=== PATIENT | female | born 1940 | race Caucasian/White ===

== ENCOUNTER 2020-06-28 11:31 | Observation (INO) | payer MEDICARE, SELFPAY ==
[2020-06-28] VITALS (7 sets, daily range): BP systolic 138–143; BP diastolic 71–92; PULSE 68–80; RESP 16; TEMP 36.2–36.8; O2SAT 93–98; BMI 26.4; BMI 26.5
--- NOTE | 2020-06-28 12:38 | PCM.HP.STD ---
Problem List (1) Right ureteral calculus Status: Acute History of Present Illness Date of Admission: 06/28/20 Chief Complaint: Obstructing right ureteral calculi 9 mm The patient is a 80 year old female who was in outside emergency room with obstructing stone 9 mm size in the distal right ureter she was transferred for further care as pain was out of control admitted to the hospital and she is undergo a cystoscopy stent placement. Past Medical History Allergies No Known Allergies Allergy (Verified 06/24/15 11:24) Home Medications: Ambulatory Orders Medication Instructions Recorded Acetaminophen [Tylenol Extra 500 mg PO DAILY PRN 06/24/15 Strength] Amlodipine/Benazepril [Lotrel 1 capsule PO DAILY 06/24/15 10-20 MG Capsule] Cyanocobalamin [Vitamin B12] 500 mcg PO DAILY@0800 06/24/15 Lorazepam [Ativan] 1 mg PO DAILY 06/24/15 Multivit-Min/Iron/Folic/Lutein 1 tab PO DAILY 06/24/15 [Centrum Silver Women Tablet] Paroxetine HCl [Paxil] 10 mg PO DAILY 06/24/15 Cholecalciferol (Vitamin D3) 25 mcg PO DAILY 06/28/20 [Vitamin D3] Magnesium Oxide [Mag-Oxide] 200 mg PO DAILY 06/28/20 Surgical History: no surgical history Smoking Status: Former smoker Review of Systems Constitutional: Denies: Chills, Fever, Weight Change HEENT: Denies: Head Aches, Sinus Congestion, Sinus Drainage Cardiovascular: Denies: Chest Pain, Palpitations Respiratory: Denies: Cough, Shortness of breath at rest, Sputum production Gastrointestinal: Denies: Abdominal Pain, Nausea, Vomiting Genitourinary: Denies: Dysuria Musculoskeletal: Denies: Joint Pain, Joint Tenderness Skin: Denies: Rash, Wounds Neurological: Denies: Numbness, Tingling, Focal weakness Psychiatric: Denies: Anxiety, Depression, Homicidal Ideations, Suicidal Ideations Hematologic/ Lymphatic: Denies: Easy Bruising, Easy Bleeding VTE Information - Inpt Only VTE Present on Admission: No - Physical Exam Vitals/I&O's: Vital Signs Temp Pulse Resp BP Pulse Ox 98.3 F 74 16 138/92 H 94 06/28/20 11:35 06/28/20 11:35 06/28/20 11:35 06/28/20 11:35 06/28/20 11:35 Oxygen Delivery Method Room Air Weight: 59.5 kg Body Mass Index (BMI) 26.4 General: Alert, Oriented x3, Cooperative HEENT: Atraumatic, PERRLA, EOMI, Normocephalic Neck: Supple, No JVD, Negative Carotid Bruits Lungs: Clear to auscultation, Normal air movement Cardiovascular: Regular rate, No murmurs Abdomen: Bowel Sounds Present, Soft, Non Tender Extremities: No edema, Capillary Refill Less than 3 Seconds Skin: No rashes, No breakdown Musculoskeletal: No Tenderness to Palpation of Joints or Extremities Neurological: Cranial nerves II-XII grossly intact Psych/Mental Status: Normal Affect, Appropriate Current Medications Sodium Chloride () 250 mls @ 15 mls/hr IV .[id number] PRN PRN Reason: Additional IVPB Infusion Sodium Chloride (0.9% Saline Lock 10 Ml Syringe) 10 - 40 ml IV UD PRN PRN Reason: SALINE FLUSH Assessment/Plan All Active Problems Right ureteral calculus (Acute) Admit to the hospital for obstructing stone in the distal right ureter she is n.p.o. for surgery again plan to proceed with cystoscopy right stent placement.
[2020-06-28] MEDS: Lactated Ringers 1,000 ML 75 ML IV (13:00)
[2020-06-28] MEDS: Lidocaine Jelly 2% 20 ML Syringe (URO-JET) 20 APPLIC (13:10)
--- NOTE | 2020-06-28 13:21 | OP.PCM_ITS ---
Problem List (1) Right ureteral calculus Status: Acute Report of Operation Date of Procedure: 06/28/20 Pre-Operative Diagnosis: Obstructing left ureteral calculi Post-Operative Diagnosis: Same Surgery/Procedure Performed:: Cystoscopy left retrograde pyelogram left stent placement Description of Surgical Findings:: 80-year-old female presents to the hospital with obstructing stone and severe pain she was taken back to the operating room underwent sedation. We prepped and draped the urethra area and vaginal area in sterile fashion. I went into the bladder with a 21 Colombian rigid cystourethroscope. We did inspection of the bladder no abnormalities are seen in the bladder identified the trigone the left right ureteral orifice I then cannulated the left ureteral orifice with a angled tip Glidewire 0.035 and advanced it up into the kidney. Over this I then placed a Pollick catheter 5 Colombian open-ended catheter over the wire performed a retrograde pyelogram confirmed is in the kidney and then backloaded the wire up into the kidney and over the wire then advanced a 6 Colombian by 24 cm stent. I pulled the wire the stent: The kidney bladder good position and then had drainage of urine from the kidney. Plan to be to discharge the patient home today and then I will set the patient up for outpatient surgery for her obstructing stone. Type of Anesthesia:: General Drains: LEFT STENT - Admit VTE Documentation VTE Present on Admission: No VTE Mechan Device Prophylaxis: SCD's
--- NOTE | 2020-06-28 13:24 | DCINST_ITS ---
Discharge Diet: No Restrictions Discharge Activity: Return to Normal Activity, May Not Drive - for 2 days. Additional Activity Instructions:: Please be aware that pain medications may cause nausea. You should typically eat light foods as you take your pain medication. Pain medication may cause constipation, if this is a problem for you, please discuss with your doctor. Allergies/Adverse Reactions: Allergies No Known Allergies Allergy (Verified 06/24/15 11:24) Medications to take at Discharge Acetaminophen [Tylenol Extra Strength] 500 mg PO DAILY PRN 06/24/15 Amlodipine/Benazepril [Lotrel 10-20 MG Capsule] 1 capsule PO DAILY 06/24/15 Cyanocobalamin [Vitamin B12] 500 mcg PO DAILY@0800 06/24/15 Lorazepam [Ativan] 1 mg PO DAILY 06/24/15 Multivit-Min/Iron/Folic/Lutein [Centrum Silver Women Tablet] 1 tab PO DAILY 06/24/15 Paroxetine HCl [Paxil] 10 mg PO DAILY 06/24/15 Cholecalciferol (Vitamin D3) [Vitamin D3] 25 mcg PO DAILY 06/28/20 Magnesium Oxide [Mag-Oxide] 200 mg PO DAILY 06/28/20 Primary Care Physician: Quintin Esposito MD [Primary Care Provider] - Test Results: Test results from this visit will be discussed in further detail at your follow- up appointment, if applicable. Please Follow Up With: Jet Gonzalez MD When: please call to make an appointment FOR SURGERY
== END 2020-06-28 15:46 | disposition home or self-care (01) ==
PROVIDERS: Admitting Provider Urology; PCP Family Medicine; Visit Provider Urology
PROC: (CPT 52332; principal; 2020-06-28 13:00)
DX: N20.1 Calculus of ureter (principal); Z87.891 Personal history of nicotine dependence; Z79.899 Other long term (current) drug therapy; F32.9 Major depressive disorder, single episode, unspecified
CPT/HCPCS: 00910; 52332; 76000; 87426; J7120; C1769; C2617

== ENCOUNTER → 2020-07-28 13:06 | Outpatient (CLI) | payer MEDICARE, SELFPAY ==
[2020-06-28 11:35] VITALS: BMI 26.4
--- NOTE | 2020-07-28 13:11 | RAD_ITS ---
STUDY: X-RAY - ABDOMEN/PELVIS REASON FOR EXAM: Female, 80 years old patient has been treated for kidney stones. TECHNIQUE: Single AP view of the abdomen / pelvis. COMPARISON: Radiograph of the abdomen dated 02/06/2017. FINDINGS: Normal visualized lung bases. There is an unremarkable bowel gas pattern. Patient has bilateral ureteral stents which appear to be appropriate position. There is no obvious organomegaly, mass or dilated bowel. Multiple pelvic calcifications are probably phleboliths. Normal soft tissue structures. The bones are osteopenic. There is moderate scoliosis of the thoracic and lumbar spine with convexity towards left. There are multilevel degenerative changes of the imaged spine. There are degenerative changes of the hips. RAD/Abdomen Single View IMPRESSION: Bilateral ureteral stents are present. Electronically Signed: Iveth House MD at 6:37 EST , Service support ,
== END ==
PROVIDERS: PCP Family Medicine; Referring Provider Urology; Visit Provider Urology
DX: N20.0 Calculus of kidney (principal)
CPT/HCPCS: 74018

== ENCOUNTER 2021-10-29 15:09 | Emergency (ER) | payer MEDICARE, SELFPAY ==
[2021-10-29 15:09] VITALS: BP 153/103; PULSE 108; RESP 18; TEMP 36.5; O2SAT 98; BMI 22.6
[2021-10-29 15:56] LABS: Absolute Lymphocyte Count 1.44 X10^3/uL (0.83-4.51); Basophil# 0.02 X10^3/uL; Basophil% 0.3 % (0-1); Eosinophil# 0.05 X10^3/uL; Eosinophils% 0.8 % (0-5); Hematocrit 41.5 % (37-47); Hemoglobin 14.3 g/dL (12.0-15.0); Lymphocyte # 1.44 X10^3/ul (0.83-4.51); Lymphocyte % 22.4 % (19-41); Mean Corp Hgb Conc 34.5 g/dL (32-36); Mean Corpuscular Hgb 32.9 pg (27.0-32.0); Mean Corpuscular Volume 95.6 fL (81-99); Mean Platelet Vol. 10.3 fl (6.2-12.0); Monocyte# 0.86 X10^3/uL; Monocyte% 13.4 % (0-10); NRBC Flagged by Analyzer 0 % (0-5); Neutrophil # 4.03 X10^3/uL (2.7-7.7); Neutrophil % 62.8 % (47-70); Platelet Count 302 K/mm3 (150-450); RBC Distribution Width CV 13.4 % (11.6-14.6); RBC Distribution Width SD 48.2 fl (35.1-43.9); Red Blood Count 4.34 M/mm3 (4.2-5.4); White Blood Count 6.4 K/mm3 (4.4-11.0)
[2021-10-29 16:36] LABS: Anion Gap 5 (5-15); BUN 13 mg/dL (7-18); BUN/Creat Ratio 13.1 RATIO (10-20); Calcium,Total 9.8 mg/dL (8.5-10.1); Chloride 105 mmol/L (98-107); Creatinine, Serum 0.99 mg/dL (0.55-1.02); EST Glomerular Filtration Rate 57 mL/min (>60); Est Glom Filt Rate - Afr Amer 69 mL/min (>60); Estimated Creatinine Clearance 34.53 ml/min; Glucose 102 mg/dL (74-106); Potassium 3.6 mmol/L (3.5-5.1); Sodium Level 137 mmol/L (136-145)
--- NOTE | 2021-10-29 16:37 | EDS_ITS ---
HPI <YAO Crandall - Last Filed: 10/29/21 18:27> History of Present Illness Chief Complaint: Abd Pain Narrative Narrative: 81-year-old female with history of kidney stones, hypertension presents the emergency department 5 days of left-sided flank pain that has radiated around her back to her front. Patient noticed blood in her urine the last 48 hours and is here for evaluation. Patient states that the pain is gnawing, not quite as severe as when it started however still there. Patient states he takes Tylenol and does have relief with this. She did have intervention completed 1.5 years ago due to kidney stones that were too large in the past. She denies any back pain at this time, fever chills nausea vomiting. PFSH <YAO Crandall - Last Filed: 10/29/21 18:27> [facility] Medical History (Updated 10/29/21 @ 18:24 by YAO Crandall) HTN (hypertension) Home Medications acetaminophen 500 mg PO DAILY PRN 06/24/15 [History Last Taken 06/27/20] amlodipine-benazepril [Lotrel 10-20 MG Capsule] 1 capsule PO DAILY 06/24/15 [History Last Taken 06/28/20] cyanocobalamin (vitamin B-12) 500 mcg PO DAILY@0800 06/24/15 [History Last Taken 06/27/20] lorazepam 1 mg PO DAILY 06/24/15 [History Last Taken 06/27/20] fdwrwzcc-sut-unsn-FA-lutein [Centrum Silver Women Tablet] 1 tab PO DAILY [History Last Taken 06/27/20] paroxetine HCl [Paxil] 10 mg PO DAILY 06/24/15 [History Last Taken 06/27/20] cholecalciferol (vitamin D3) 25 mcg PO DAILY 06/28/20 [History Last Taken Unknown] ciprofloxacin HCl 500 mg PO BID #10 tab 06/28/20 [Rx Last Taken Unknown] magnesium oxide 200 mg PO DAILY 06/28/20 [History Last Taken Unknown] oxycodone-acetaminophen [Percocet] 1 tab PO Q6H PRN 3 Days #10 tab 10/29/21 [Rx Last Taken Unknown] tamsulosin [Flomax] 0.4 mg PO DAILY #5 cap 10/29/21 [Rx Last Taken Unknown] Allergy/AdvReac Type Severity Reaction Status Date / Time No Known Allergies Allergy Verified 10/29/21 15:10 Social History Smoking Status: Former smoker ROS <YAO Crandall - Last Filed: 10/29/21 18:27> ROS ED ROS Narrative Constitutional: Negative for fever, chills, weight loss or gain, weakness Eyes: Negative for vision loss, vision change, double vision ENT: Negative for any hearing changes, ringing in the ears, dizziness, discharge, pain Nose: Negative for any congestion, runny nose, sinus pain, allergies Throat: Negative for any sore throat hoarseness, voice changes, Cardiovascular: Negative for any chest pain, tightness, palpitations, racing heartbeat Respiratory: Negative for any coughs, sputum production, coughing, hemoptysis, shortness of breath, shortness of breath on exertion, Gastrointestinal: Negative for any abdominal pain, nausea, vomiting, diarrhea, constipation, blood in stool, blood in vomit. Positive for left-sided flank pain that radiates around the left groin : Negative for any urinary frequency, incontinence, dysuria, retention. Positive for hematuria Muscle skeletal: Negative for any muscle joint pain, stiffness, myalgias, arthralgias, neck pain, back pain Neurological: Negative for any headache, head injury, dizziness, syncope, numbness or tingling Skin: Negative for any rashes, lumps, itching, abrasions, lacerations Psychiatric: Negative for any depression, anxiety, stress, suicidal ideation, homicidal ideation Hematologic: Negative for any easy bruising, excessive bruising, easy bleeding Allergies: Negative for any eczema, hives, rash EXAM <YAO Crandall - Last Filed: 10/29/21 18:27> Physical Exam Const Vital Signs: 10/29/21 15:09 Temperature 97.7 F L Temperature Source Temporal Pulse Rate 108 H Respiratory Rate 18 Blood Pressure 153/103 H Blood Pressure Mean 119 Pulse Ox 98 Oxygen Delivery Method Room Air Positive well nourished and well developed General Appearance ED: well developed HEENT trauma Eyes PERRL and EOMs intact bilaterally Neck no lymphadenopathy and supple Chest Wall inspection of chest normal Resp normal respiratory effort and clear to auscultation bilaterally Cardio regular rate Cardio Narrative: Patient has 3 out of 6 systolic murmur GI normal to inspection, nondistended, normoactive bowel sounds, non-tender and non-distended GI Narrative: Patient states to feel sore to the left lower quadrant however no distinct tenderness. Auscultation: normoactive bowel sounds Palpation: soft Narrative: Denies any difficulty urinating, however does state to show hematuria Back/Spine no CVA tenderness Extremity normal to inspection Neuro oriented x3 and CN's II-XII intact bilaterally Sensorium / Orientation: alert Psych mental status grossly normal Skin no rashes or lesions noted and no wounds <Dr. Reshma Morton MD - Last Filed: 10/29/21 18:51> Physical Exam Const Vital Signs: 10/29/21 15:09 Temperature 97.7 F L Temperature Source Temporal Pulse Rate 108 H Respiratory Rate 18 Blood Pressure 153/103 H Blood Pressure Mean 119 Pulse Ox 98 Oxygen Delivery Method Room Air MDM <YAO Crandall - Last Filed: 10/29/21 18:27> [facility] Narrative Medical decision making narrative: Patient arrives well, she is in no distress. Patient presents the emerge department with left flank pain is ongoing for 5 days.Patient does have a history of kidney stones, patient receive a kidney st one work-up, patient is urinalysis was positive patient's urinalysis was positive for blood however no infection. Patient CT of the abdomen pelvis did show a 4 mm obstructing stone at the left UVJ with moderate dilated hydronephrosis. At this time patient required no pain medicine, patient states he feels generally well. She is showing no signs of infection. She will follow up closely Monday with her established urologist Lisa. Patient will be given Percocet, Flomax for home. Patient is stable for discharge Lab Data Labs: Laboratory Results - last 24 hr 10/29/21 10/29/21 10/29/21 15:46 15:46 16:40 WBC 6.4 RBC 4.34 Hgb 14.3 Hct 41.5 MCV 95.6 MCH 32.9 H MCHC 34.5 RDW Std Deviation 48.2 H RDW Coeff of Harris 13.4 Plt Count 302 MPV 10.3 Immature Gran % (Auto) 0.300 Neut % (Auto) 62.8 Lymph % (Auto) 22.4 [place] % (Auto) 13.4 H Eos % (Auto) 0.8 Baso % (Auto) 0.3 Absolute Neuts (auto) 4.0 Absolute Lymphs (auto) 1.44 Nucleated RBC % 0 Sodium 137 Potassium 3.6 Chloride 105 Carbon Dioxide 27.0 Anion Gap 5 BUN 13 Creatinine 0.99 Estim Creat Clear Calc 34.53 Est GFR (MDRD) Af Amer 69 Est GFR (MDRD) Non-Af 57 L BUN/Creatinine Ratio 13.1 Glucose 102 Calcium 9.8 Urine Color Yellow Urine Clarity Clear Urine pH 5.0 Ur Specific [place] 1.020 Urine Protein 30 H Urine Glucose (UA) Normal Urine Ketones Negative Urine Occult Blood 250 H Urine Nitrite Negative Urine Bilirubin Negative Urine Urobilinogen Normal Ur Leukocyte Esterase 500 H Urine RBC 10-25 SEEN Urine WBC 0-5 SEEN Ur Squamous Epith Cells 0-5 SEEN Urine Bacteria 0 SEEN Urine Mucus 1+ Radiography Diagnostic Testing: Clinical Impression(s) from Imaging Studies Abdomen/Pelvis CT 10/29/21 16:58 IMPRESSION: 4 mm obstructing stone at the left uterovesical junction with moderate dilatation of hydronephrosis. Electronically Signed: Beni Bear MD at 17:20 EDT , <Dr. Reshma Morton MD - Last Filed: 10/29/21 18:51> [facility] Lab Data Labs: Laboratory Results - last 24 hr 10/29/21 10/29/21 10/29/21 15:46 15:46 16:40 WBC 6.4 RBC 4.34 Hgb 14.3 Hct 41.5 MCV 95.6 MCH 32.9 H MCHC 34.5 RDW Std Deviation 48.2 H RDW Coeff of Harris 13.4 Plt Count 302 MPV 10.3 Immature Gran % (Auto) 0.300 Neut % (Auto) 62.8 Lymph % (Auto) 22.4 Florence % (Auto) 13.4 H Eos % (Auto) 0.8 Baso % (Auto) 0.3 Absolute Neuts (auto) 4.0 Absolute Lymphs (auto) 1.44 Nucleated RBC % 0 Sodium 137 Potassium 3.6 Chloride 105 Carbon Dioxide 27.0 Anion Gap 5 BUN 13 Creatinine 0.99 Estim Creat Clear Calc 34.53 Est GFR (MDRD) Af Amer 69 Est GFR (MDRD) Non-Af 57 L BUN/Creatinine Ratio 13.1 Glucose 102 Calcium 9.8 Urine Color Yellow Urine Clarity Clear Urine pH 5.0 Ur Specific [place] 1.020 Urine Protein 30 H Urine Glucose (UA) Normal Urine Ketones Negative Urine Occult Blood 250 H Urine Nitrite Negative Urine Bilirubin Negative Urine Urobilinogen Normal Ur Leukocyte Esterase 500 H Urine RBC 10-25 SEEN Urine WBC 0-5 SEEN Ur Squamous Epith Cells 0-5 SEEN Urine Bacteria 0 SEEN Urine Mucus 1+ Radiography Diagnostic Testing: Clinical Impression(s) from Imaging Studies Abdomen/Pelvis CT 10/29/21 16:58 IMPRESSION: 4 mm obstructing stone at the left uterovesical junction with moderate dilatation of hydronephrosis. Electronically Signed: Beni Bear MD at 17:20 EDT , Treatment and Re-Evaluation Narrative: I have personally performed a face to face assessment of the patient and have reviewed the LILA Note. I performed a substantive portion of the visit including all aspects of the following. My chan findings include: History is Patient presents with left flank pain similar to prior kidney stone. She also noted hematuria a few days ago. Because the left flank pain has not completely resolved she presented today for evaluation. She has required lithotripsy in the past. Exam is Patient lying in bed no acute distress. Head and neck examination unremarkable. Heart is regular rate and rhythm. Lung sounds are clear. Abdomen is soft with no focal tenderness. No CVA tenderness at the time of my exam. Medical Decison Making Lab work, urinalysis, CT flank obtained. Urinalysis shows 10-25 RBCs with 0 bacteria. Nitrite negative. Lab work reveals normal renal function. CT scan confirms 4 mm stone at the left UVJ. Patient has very minimal pain at this time. She will be given pain control for the weekend and will follow up with Dr. Gonzalez on Monday. Return instructions are provided. Discharge Plan Triage Chief Complaint: Abd Pain ED Midlevel Provider: De Magallanes ED Provider: Reshma Morton Dx/Rx/DC Orders Clinical Impression: Left ureteral calculus Instructions: ED Kidney Stone w/ Colic Prescriptions: New oxycodone-acetaminophen [Percocet] 5-325 mg tablet 1 tab PO Q6H PRN (Reason: pain) 3 Days Qty: 10 RF: 0 tamsulosin [Flomax] 0.4 mg capsule 0.4 mg PO DAILY Qty: 5 RF: 0 No Action paroxetine HCl [Paxil] 10 MG tablet 10 mg PO DAILY RF: 0 acetaminophen 500 MG tablet 500 mg PO DAILY PRN (Reason: Pain) RF: 0 cyanocobalamin (vitamin B-12) 500 MCG tablet 500 mcg PO DAILY@0800 RF: 0 lorazepam 1 MG tablet 1 mg PO DAILY RF: 0 amlodipine-benazepril [Lotrel] 1 CAPSULE capsule 1 capsule PO DAILY RF: 0 parjupcj-ypq-ivwi-FA-lutein [Centrum Silver Women] 1 EACH tablet 1 tab PO DAILY RF: 0 cholecalciferol (vitamin D3) 25 MCG capsule 25 mcg PO DAILY RF: 0 magnesium oxide 200 MG tablet 200 mg PO DAILY RF: 0 ciprofloxacin HCl 500 MG tablet 500 mg PO BID Qty: 10 RF: 0 Primary Care Provider: Quintin Esposito Referrals: Jet Gonzalez MD [STAFF PHYSICIAN] - Quintin Esposito MD [Primary Care Provider] - Activity Restrictions/Additional Instructions: Please take pain medicine as needed. Please follow-up with your urologist Monday. Please return for any worsening pain, back pain, fever chills nausea vomiting. Print Language: Vietnamese Disposition Disposition: Home, Self Care Discharge Date/Time: 10/29/21 18:34
[2021-10-29 16:54] LABS: Bacteria 0 SEEN /hpf (None Seen)
--- NOTE | 2021-10-29 16:58 | CT_ITS ---
STUDY: CT ABDOMEN AND PELVIS WITHOUT CONTRAST REASON FOR EXAM: Female, 81 years old. flank pain RADIATION DOSAGE (If Supplied By Facility): CTDIvol = ( 7.25 ) mGy, DLP = ( 333.08 ) mGycm TECHNIQUE: Transaxial images were obtained from the dome of the diaphragm to the symphysis pubis without oral contrast, and without intravenous contrast. Sagittal and coronal images were reconstructed. Individualized dose optimization techniques were used for this CT. COMPARISON: 06/15/2015 FINDINGS: The visualized lung bases are unremarkable. The visualized portions of the heart are within normal limits. Normal liver. Normal gallbladder and extrahepatic biliary system. Normal spleen. Normal pancreas. Normal bilateral adrenal glands. Multiple bilateral nonobstructing renal stones. 4 mm obstructing stone at the left ureterovesical junction with moderate ureteral dilatation and hydronephrosis. There is a large hiatal hernia composed mostly of the fundus of the stomach. Normal small intestine. Normal colon. The appendix is visualized and appears normal. Normal abdominal aorta. Normal inferior vena cava. Normal retroperitoneum. Normal urinary bladder. 4 cm physiologic cyst, partly ovarian cyst, cystadenoma the right ovary. Normal abdominal wall. Severe levoscoliosis of the thoracolumbar spine with degenerative disc disease and deformity. CT/Abdomen/Pelvis without Cont IMPRESSION: 4 mm obstructing stone at the left uterovesical junction with moderate dilatation of hydronephrosis. Electronically Signed: Beni Bear MD at 17:20 EDT ,
[2021-10-29 17:19] LABS: Color, Urine Yellow (Yellow); Glucose, Dipstick Normal (Normal); Ketone-Dipstick Negative (Negative); Leukocyte Esterase-Dipstick 500 /ul (Negative); Nitrite-Dipstick Negative (Negative); Occult Blood-Urine 250 /ul (Negative); Protein-Dipstick 30 mg/dl (Negative); Urine Bilirubin Dipstick Negative (Negative); Urine Clarity Clear (Clear); Urine Urobilinogen Normal (Normal)
[2021-10-29 17:26] LABS: Red Blood Cells-Urine 10-25 SEEN /hpf (0-5); White Blood Cells 0-5 SEEN /hpf (0-5)
[2021-10-29 17:27] LABS: Mucous, Urine 1+ /hpf (<or=2+); Squamous Epithelial Cells - UA 0-5 SEEN /hpf (5-10)
== END 2021-10-29 18:34 | disposition home or self-care (01) ==
PROVIDERS: Emergency Provider Emergency Medicine; PCP Family Medicine; Visit Provider Emergency Medicine
DX: N13.2 Hydronephrosis with renal and ureteral calculous obstruction (principal); I10 Essential (primary) hypertension; Z87.891 Personal history of nicotine dependence; Z87.442 Personal history of urinary calculi
CPT/HCPCS: 74176; 80048; 81001; 85025; 99283; A4216

== ENCOUNTER 2021-11-03 10:34 | Day surgery (SDC) | payer MEDICARE, SELFPAY ==
[2021-11-03] VITALS (8 sets, daily range): BP systolic 118–138; BP diastolic 74–92; PULSE 78–101; RESP 16; TEMP 36.2–36.7; O2SAT 90–100; BMI 22.2
[2021-11-03] MEDS: Lactated Ringers 1,000 ML 15 ML IV (11:27)
[2021-11-03] MEDS: Cefazolin 2 GM in 0.9% Normal Saline 100 ML IV (12:20)
--- NOTE | 2021-11-03 13:09 | PCM.HP.STD ---
HPI - General HPI Narrative JONG MCCANN, is a 81 F who presents bilateral calculi PFSH Medical History (Updated 11/02/21 @ 09:38 by Liana Casas) Alcohol use Anxiety Arthritis Back pain Depression Heart murmur Heartburn History of edema History of heart attack History of stress test Hoarseness of voice HTN (hypertension) Injury of back Migraine headache Pain Restless legs Smoker Wears dentures Wears glasses Home Medications Centrum Silver Women 1 tab PO DAILY 06/24/15 [History Last Taken 06/27/20] acetaminophen 500 mg PO DAILY PRN 06/24/15 [History Last Taken 06/27/20] amlodipine-benazepril [Lotrel] 1 capsule PO DAILY 06/24/15 [History Last Taken 11/03/21 08:00] cyanocobalamin (vitamin B-12) 500 mcg PO DAILY@0800 06/24/15 [History Last Taken 06/27/20] lorazepam 1 mg PO DAILY 06/24/15 [History Last Taken 06/27/20] paroxetine HCl [Paxil] 10 mg PO DAILY 06/24/15 [History Last Taken 06/27/20] cholecalciferol (vitamin D3) 25 mcg PO DAILY 06/28/20 [History Last Taken Unknown] magnesium oxide 200 mg PO QODAY 06/28/20 [History Last Taken Unknown] oxycodone-acetaminophen [Percocet] 1 tab PO Q6H PRN 3 Days #10 tab 10/29/21 [Rx Last Taken Unknown] tamsulosin [Flomax] 0.4 mg PO DAILY #5 cap 10/29/21 [Rx Last Taken Unknown] ciprofloxacin HCl [Cipro] 500 mg PO BID #10 tab 11/03/21 [Rx Last Taken Unknown] Allergy/AdvReac Type Severity Reaction Status Date / Time No Known Allergies Allergy Verified 11/03/21 11:11 Surgical History (Updated 11/02/21 @ 09:38 by Liana Casas) History of cardiac catheterization History of cystoscopy Hx of bladder repair surgery Hx of colonoscopy Hx of decompressive lumbar laminectomy Hx of left cataract extraction Hx of right cataract extraction Social History Smoking Status: Current some day smoker tobacco type: cigarettes Vital Signs Vital Signs Vital Signs: 11/03/21 11:13 11/03/21 11:18 Temperature 97.9 F Temperature Source Temporal Pulse Rate 78 Respiratory Rate 16 Respiratory Pattern Normal Blood Pressure 118/80 Blood Pressure Mean 92 Blood Pressure Source Monitor Blood Pressure Position Semi-Fowlers Blood Pressure Location Left Arm Pulse Ox 98 Oxygen Delivery Method Room Air Weight Weight: 50 kg Body Mass Index (BMI) 22.2
--- NOTE | 2021-11-03 13:10 | OP.PCM_ITS ---
Report of Operation Date of Procedure: 11/03/21 Pre-Operative Diagnosis: Distal left ureteral calculi, right multiple renal pérez culi Post-Operative Diagnosis: The same Surgery/Procedure Performed:: Cystoscopy, left ureteroscopy basket extraction of stone no stent placement Cystoscopy right ureteroscopy, right laser lithotripsy of stones and stent placement. Retrograde pyelograms bilateral, interpretation fluoroscopic images. Description of Surgical Findings:: This is a patient who presents to the hospital for treatment for an obstructing distal ureter calculi. I discussed with the patient how the surgery would be performed and we reviewed the risks and benefits of the surgery. The risk and benefits include the risk of failure to remove the stone completely and that the patient may need multiple procedures. We discussed the risk of an infection, the risk of bleeding. We discussed the very rare risk of serious complicated injury to the ureter. The patient understands that if the stone is not able to be removed safely that we may abort the procedure and place a stent. After full discussion and all questions address with the patient the consent form was signed the side was marked appropriately and the patient was taken back to the operating room for the procedure. The patient was taken back to the operating room. After induction of anesthesia by the anesthesiology team the patient was placed in dorsolithotomy position. The genitals were prepped and draped in usual sterile fashion. I went into the bladder with a 21 Ethiopian rigid cystourethroscope through the urethra. Upon entering the bladder I inspected the trigone the left and right ureteral orifice and the bladder itself. I then cannulated the Left ureteral orifice and advanced a 0.038 Glidewire up into the kidney. Then over the Glidewire I adva nced a 5 Fr Ureteral catheter and performed a retrograde pyelogram with about 10cc of contrast, to delineate the anatomy and identify the stone location. I then placed a second 0.038 Guidewire as a working wire and over the working 0.038 guidewire I went in with the bharati rigide 7.5fr ureteroscope. I was able to go inside with the 7.5Fr bharati rigid utereroscope and I pulled out the working guidewire and then through the 7.5 fr simirigid ureteroscope I engage the stone and extracted it from the distal ureter and was sent for analysis, no stent placed on the left side. I then cannulated the Right ureteral orifice and advanced a 0.038 Glidewire up into the kidney. Then over the Glidewire I advanced a 5 Fr Ureteral catheter and performed a retrograde pyelogram with about 10cc of contrast, to delineate the anatomy and identify the stone location. I then placed a second 0.038 Guidewire as a working wire and over the working 0.038 guidewire I went in with a Flexible 7.9fr ureteroscope. I was able to go inside with the 7.9Fr flexible utereroscope and I pulled out the working guidewire and then through the 7.9 fr flexible ureteroscope I ascended up the ureter with direct visualization until the stone was located, then I engaged the stone with laser lithotripsy using a 270miron laser fiber with energy setting of 6 Hertz and 0.6 J until the stone was lasered into tiny little pieces that should pass on their own. After successful laser lithotripsy of the stone and stone fragements, a retrograde pyelogram was performed with 10cc of contrast and no extravasation of contrast or perforation was identified in the ureter. I then backed out of the ureter left the wire in place and then over the 0.038 guidewire I placed a double coiled pigtail ureteral stent. The ureteral stent was advanced over the 0.038 guidewire under direct fluoroscopic guidance and direct cystoscopic visual guidance, once the stent was in good position I pulled the wire and the stent coiled in the kidney and bladder in good position. I then drained the patient's bladder and the cystoscope was removed and the patient was taken back to the recovery room in good position. The patient was given discharge instructions to call the office for instructions on when to come to the office to have the stent removed. Surgeon: isaac Type of Anesthesia: General Drains: stent right side Admit VTE Documentation VTE Present on Admission: No VTE Mechan Device Prophylaxis: SCD's VTE Pharm Prophylaxis ordered?: No
--- NOTE | 2021-11-03 13:10 | PCM.DC ---
Discharge Instructions Diet Discharge Diet: No restrictions Activity Discharge Activity: Return to Normal Activity and May Not Drive (while taking narcotic pain medications.) Dressing / Incision Call your doctor if you observe: Fever of 101 or Higher Follow Up Care Please Follow Up With: Jet Gonzalez MD When: Call [phone] for an appointment Test Results: Test results from this visit will be discussed in further detail at your follow-up appointment, if applicable. Discharge Plan Admission Primary Reason for Your Visit: kidney stone Attending Provider: Jet Gonzalez Primary Care Provider: Quintin Esposito Discharge Orders/Prescriptions Prescriptions: New ciprofloxacin HCl [Cipro] 500 mg tablet 500 mg PO BID Qty: 10 RF: 0 Continued paroxetine HCl [Paxil] 10 MG tablet 10 mg PO DAILY RF: 0 acetaminophen 500 MG tablet 500 mg PO DAILY PRN (Reason: Pain) RF: 0 cyanocobalamin (vitamin B-12) 500 MCG tablet 500 mcg PO DAILY@0800 RF: 0 lorazepam 1 MG tablet 1 mg PO DAILY RF: 0 amlodipine-benazepril [Lotrel] 1 CAPSULE capsule 1 capsule PO DAILY RF: 0 Centrum Silver Women 1 EACH tablet 1 tab PO DAILY RF: 0 cholecalciferol (vitamin D3) 25 MCG capsule 25 mcg PO DAILY RF: 0 magnesium oxide 200 MG tablet 200 mg PO QODAY RF: 0 oxycodone-acetaminophen [Percocet] 5-325 mg tablet 1 tab PO Q6H PRN (Reason: pain) 3 Days Qty: 10 RF: 0 tamsulosin [Flomax] 0.4 mg capsule 0.4 mg PO DAILY Qty: 5 RF: 0 Referrals / Follow Up: Jet Gonzalez MD [STAFF PHYSICIAN] - Quintin Esposito MD [Primary Care Provider] - Disposition Disposition (needs filled in before D/C Order can be placed): Home, Self Care
--- NOTE | 2021-11-03 13:22 | EKG12_ITS ---
Test Reason : IRREGULAR Blood Pressure : / mmHG Vent. Rate : 102 BPM Atrial Rate : 102 BPM P-R Int : 172 ms QRS Dur : 072 ms QT Int : 364 ms P-R-T Axes : 051 049 001 degrees QTc Int : 474 ms Sinus tachycardia with Premature atrial complexes Low voltage QRS (LIMB LEADS) Septal infarct ,AGE UNDETERMIND, CANNOT BE EXCLUDED Abnormal ECG Confirmed by SKYLAR VILLAGOMEZ, CHARMAINE ([id number]), web content editor WILFRIDO DOAN ([id number]) on 11/09/2021 1:14:17 PM Referred By: ERICK Confirmed By:CHARMAINE CHENG MD
[2021-11-03] MEDS: Ketorolac 15 MG/ML Vial IV (13:35)
[2021-11-03] MEDS: Ipratropium/Albuterol Sulfate 3 ML AMPUL.NEB INHALATION (14:23)
--- NOTE | 2021-11-03 14:26 | SUR.PHASEI ---
family updated via construction secretary
--- NOTE | 2021-11-03 14:32 | SUR.PHASEI ---
breathing treatment given in PACU to improve O2 saturation. patient tolerated well.
== END 2021-11-03 23:59 | disposition home or self-care (01) ==
LOC: SDC 10:43 → AC 10:44
PROVIDERS: PCP Family Medicine; Visit Provider Urology
PROC: 0TJ98ZZ Inspection of Ureter, Via Natural or Artificial Opening Endoscopic (ICD-10-PCS; CPT 52352; principal; 2021-11-03 12:30)
DX: N20.2 Calculus of kidney with calculus of ureter (principal); I10 Essential (primary) hypertension; F17.210 Nicotine dependence, cigarettes, uncomplicated; I25.2 Old myocardial infarction; F32.A Depression, unspecified; F41.9 Anxiety disorder, unspecified
CPT/HCPCS: 52352; 52356; 00873; 76000; 82360; 93005; J7120; C1769; C2617; J2405

== ENCOUNTER → 2021-12-24 | Outpatient (CLI) | payer MEDICARE, SELFPAY ==
--- NOTE | 2021-12-24 13:45 | RAD_ITS ---
STUDY: XR Abdomen 1 View 12/24/2021 1:52 PM REASON FOR EXAM: Female, 81 years old. ABDOMINAL PAIN CALCULUS OF KIDNEY W CALC OF URETER TECHNIQUE: XR Abdomen 1 View COMPARISON: 07.28.20 FINDINGS: There are calcified phleboliths in the pelvis. This makes differentiation with distal ureteral stones difficult. There is an unremarkable bowel gas pattern. There is no demonstrated free abdominal air. The visualized liver, spleen and kidneys are grossly normal in size and morphology. Normal soft tissue structures. There are diffuse degenerative changes of the visualized lumbar spine. There is scoliosis of the lumbar spine. There are atherosclerotic vascular calcifications. RAD/Abdomen Single View IMPRESSION: There are no acute findings. Electronically Signed: Javon Moser MD at 19:10 EDT ,
== END | disposition home or self-care (01) ==
PROVIDERS: PCP Family Medicine; Visit Provider Urology
DX: N20.2 Calculus of kidney with calculus of ureter (principal)
CPT/HCPCS: 74018

== ENCOUNTER → 2022-04-26 | Outpatient (CLI) | payer MEDICARE, SELFPAY ==
--- NOTE | 2022-04-26 14:05 | CT_ITS ---
STUDY: CT ABDOMEN AND PELVIS WITHOUT CONTRAST REASON FOR EXAM: Female, 82 years old. ASYMPTOMATIC microscopic hematuria RADIATION DOSAGE (If Supplied By Facility): CTDIvol = ( 6.04 ) mGy, DLP = ( 229.49 ) mGycm TECHNIQUE: Transaxial images were obtained from the dome of the diaphragm to the symphysis pubis without oral contrast, and without intravenous contrast. Sagittal and coronal images were reconstructed. Individualized dose optimization techniques were used for this CT. COMPARISON: October 29, 2021 CT scan abdomen and pelvis, FINDINGS: Is increased AP diameter of the chest. The heart is pushed slightly forward by a large hiatal hernia similar to prior study. Normal liver. Normal gallbladder and extrahepatic biliary system. Normal spleen. Normal pancreas. Normal bilateral adrenal glands. There is a small exophytic cyst right kidney measuring 1.3 cm stable since prior study Hounsfield units in the range of simple fluid. There is persistent mild atrophy of the left kidney measuring 6.5 x 5.7 cm. There is an exophytic cyst left kidney measuring 1.3 x 1.2 cm Hounsfield units in the range of simple fluid. Stable since the prior study. There is a punctate stone left kidney. Since prior study there is interval resolve of the large distention of the left ureter. There is absence of the stone that was present in the distal left ureter. Partially visualized large hiatal hernia with most of the stomach in the chest. This measures 10.6 x 10.3 cm. Normal small intestine. There is a tortuous decompressed appearance of most of the colon. There are few gas-filled loops The appendix is visualized and appears normal. The aorta is tortuous and partially calcified. Normal inferior vena cava. Normal retroperitoneum. Normal urinary bladder. There is a right adnexal cyst low lying at the level of the right acetabulum measuring 4.2 x 3.6 cm. This is stable since prior study October 29, 2021. This was not seen on prior study June 15, 2015 CT scan abdomen and pelvis. The uterus is been removed. Normal abdominal wall. There is visualized severe levoscoliosis of the lumbar spine. There is chronic appearing 50% loss of height at the level of L1. There is multilevel disc space narrowing spondylosis. There is multilevel mild to moderate neural foramina narrowing. There is a bony hemangioma at the level T12. CT/Abdomen/Pelvis without Cont IMPRESSION: Resolved left-sided hydronephrosis when compared to prior study benign-appearing bilateral renal cysts. Punctate stone right kidney. No hydronephrosis. Nonobstructing, punctate stone left kidney. Atypical cyst right pelvis measuring 4.2 x 3.6 cm. Stable in measurement compared to the recent prior study October 29, 2021 new since June 15, 2015. Recommend follow-up pelvic ultrasound when appropriate. Status post hysterectomy. Scoliosis and advanced degenerative change of the thoracolumbar spine. Electronically Signed: Carolyn De La Cruz MD at 0:28 EDT ,
== END | disposition home or self-care (01) ==
PROVIDERS: PCP Family Medicine; Referring Provider Urology; Visit Provider Urology
DX: R31.21 Asymptomatic microscopic hematuria (principal)
CPT/HCPCS: 74176

== ENCOUNTER 2024-12-04 13:36 | Day surgery (SDC) | payer MEDICARE, SELFPAY ==
--- NOTE | 2024-12-03 15:33 | PAT.ANESEVAL ---
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 When Was Last Pacemaker Check QUESTION #4 FULL TEXT: You/Your Family Experience fever (hyperthermia) with Anesthesia Last Oral Intake Last Oral intake: Last Oral Intake NPO since Meds taken in AM with sips of water? 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 Female Yes 12/03/24 14:59 HX of Motion Sickness No 12/03/24 14:59 HX of N/V After Surgery No 12/03/24 14:59 Non-Smoker Yes 12/03/24 14:59 Duration of Surgery greater Yes 12/03/24 14:59 than 60 minutes Number of Risk Factors 3 12/03/24 14:59 PONV Score Moderate Risk 12/03/24 14:59 Height & Weight Height & Weight: Anesthesia: Height & Weight Height 4 ft 11 in 11/03/21 11:13 Respiratory Assessment Respiratory Assessment - traffic maintenance supervisor: Respiratory Tract Infection Hx - traffic maintenance supervisor Hx Respiratory Tract Infection No 12/03/24 14:59 STOP Sleep Apnea STOP Sleep Apnea - traffic maintenance supervisor: STOP Sleep Apnea - traffic maintenance supervisor Hx Hypertension Yes: CONTROLLED WITH MED 12/03/24 14:59 Hx Sleep Apnea No 12/03/24 14:59 CPAP No 11/02/21 09:26 BIPAP No 06/28/20 10:45 Do you snore loudly (louder No 12/03/24 14:59 than talking or can be heard Do you often feel tired/ No 12/03/24 14:59 fatigued/ sleepy during daytime? Has anyone observed you stop No 12/03/24 14:59 breathing during sleep? STOP Results Negative 12/03/24 14:59 QUESTION #5 FULL TEXT : Do you snore loudly (louder than talking or can be heard through closed doors)? 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 Specify any problems Hx of Preganancy in last 3 No 12/03/24 14:59 Months Nurse Filling Out Transfusion DSCHRIBER 12/03/24 14:59 & Questions: Date: 12/03/24 12/03/24 14:59 Time: 15:00 12/03/24 14:59 Patient unable to answer at this time (ie. confused, unrespo /Reproduction History /Reproductive History - traffic maintenance supervisor: /Reproductive Hx- traffic maintenance supervisor Hx Now No 12/03/24 14:59 Gestational Age (in weeks): EDC: Hx Hx Para Hx Section SAB No 12/03/24 14:59 Active Medications Active Medications: Current Medications Generic Name Dose Route Start Last Admin Trade Name Freq PRN Reason Stop Dose Admin Cefazolin Sodium 2 gm/ Sodium 110 mls @ 150 mls/hr 12/04/24 15:50 Chloride IV 12/04/24 16:33 INTRAOP ONE PFSH Medical History (Updated 12/03/24 @ 15:06 by Liana Casas) Post-menopausal Former smoker Leg cramps Wears glasses Wears dentures Depression Anxiety Alcohol use Arthritis Hoarseness of voice Back pain Injury of back Migraine headache History of stress test History of heart attack Heart murmur Pain HTN (hypertension) Home Medications ?Medication ?Instructions ?Recorded ?Last Taken ?Type amlodipine 10 mg-benazepril 20 mg 1 capsule PO DAILY hypertension 06/24/15 11/03/21 08:00 History capsule (Lotrel) lorazepam 1 mg tablet 1 mg PO DAILY anxiety 06/24/15 06/27/20 History paroxetine HCl 30 mg tablet 30 mg PO DAILY 12/03/24 Unknown History Allergy/AdvReac Type Severity Reaction Status Date / Time No Known Allergies Allergy Verified 12/03/24 14:56 Family History Mother Hypertension CVA (cerebral vascular accident) Brother Pancreatic cancer Surgical History (Updated 12/03/24 @ 15:06 by Liana Casas) History of ureteroscopy History of cardiac catheterization Hx of left cataract extraction Hx of right cataract extraction Hx of colonoscopy Hx of bladder repair surgery Hx of decompressive lumbar laminectomy History of cystoscopy Social History Smoking Status: Current some day smoker tobacco type: cigarettes Audit: Pertinent Findings Pertinent Findings EKG Perinent findings: November 03, 2021. Sinus tachycardia at 102 bpm. PACs. Septal infarct, age undetermined. Recommendation Anesthesia Recommendation Anesthesia recommendation: OPTIMIZED for anesthesia
[2024-12-04] VITALS (11 sets, daily range): BP systolic 120–177; BP diastolic 71–114; PULSE 65–105; RESP 16; TEMP 36.3–36.7; O2SAT 94–100; BMI 19.8
--- NOTE | 2024-12-04 13:45 | RAD_ITS ---
PROCEDURE: ABDOMEN SINGLE VIEW 12/04/2024 REASON FOR EXAM: PREOP/BILAT KIDNEY STONE TECHNIQUE: Single view abdomen. COMPARISON: 12/2021 FINDINGS: Bowel gas: Bowel gas pattern is normal. No evidence of bowel obstruction. Calcifications: No suspicious calcifications. Bones: Moderate levoscoliosis lumbar spine with degenerative disc disease. Other: RAD/Abdomen Single View IMPRESSION: NO ACUTE FINDINGS Reading Location: [id number]
--- NOTE | 2024-12-04 13:58 | DCINST_ITS ---
Discharge Instructions Diet Discharge Diet: No restrictions DC O2, CPAP, BIPAP needs Home O2 Discharge instructions: No Dressing / Incision Discharge Activity: Return to Normal Activity and May Not Drive (while taking narcotic pain medications.) Dressing / Incision Call your doctor if you observe: Fever of 101 or Higher Follow Up Care Please Follow Up With: Jet Gonzalez MD When: Call [phone] for an appointment Test Results: Test results from this visit will be discussed in further detail at your follow- up appointment, if applicable. Discharge Plan Admission Attending Provider: Jet Gonzalez Primary Care Provider: Quintin Esposito Instructions Print Language: Gibraltarian Discharge Orders/Prescriptions Prescriptions: No Action lorazepam 1 MG tablet 1 mg PO DAILY amlodipine-benazepril [Lotrel] 1 CAPSULE capsule 1 capsule PO DAILY paroxetine HCl 30 mg tablet 30 mg PO DAILY Referrals / Follow Up: Quintin Esposito MD [Primary Care Provider] - Disposition Disposition (needs filled in before D/C Order can be placed): Home, Self Care
--- NOTE | 2024-12-04 13:58 | PCM.HP.STD ---
HPI - General General Date of Service: 12/04/24 Chief Complaint: Right kidney stones HPI Narrative JONG MCCANN, is a 84 F who presents to laser stones in the right kidney has been having pain off-and-on in the right kidney from stent for several stones PFS Medical History (Updated 12/03/24 @ 15:06 by Liana Casas) Post-menopausal Former smoker Leg cramps Wears glasses Wears dentures Depression Anxiety Alcohol use Arthritis Hoarseness of voice Back pain Injury of back Migraine headache History of stress test History of heart attack Heart murmur Pain HTN (hypertension) Home Medications ?Medication ?Instructions ?Recorded ?Last Taken ?Type amlodipine 10 mg-benazepril 20 mg 1 capsule PO DAILY hypertension 06/24/15 11/03/21 08:00 History capsule (Lotrel) lorazepam 1 mg tablet 1 mg PO DAILY anxiety 06/24/15 06/27/20 History paroxetine HCl 30 mg tablet 30 mg PO DAILY 12/03/24 Unknown History Allergy/AdvReac Type Severity Reaction Status Date / Time No Known Allergies Allergy Verified 12/03/24 14:56 Family History Mother Hypertension CVA (cerebral vascular accident) Brother Pancreatic cancer Surgical History (Updated 12/03/24 @ 15:06 by Liana Casas) History of ureteroscopy History of cardiac catheterization Hx of left cataract extraction Hx of right cataract extraction Hx of colonoscopy Hx of bladder repair surgery Hx of decompressive lumbar laminectomy History of cystoscopy Social History Smoking Status: Current some day smoker tobacco type: cigarettes
--- NOTE | 2024-12-04 14:04 | PCM.PRE.AN2 ---
ASA Classification* ASA Classification ASA Classification: 2 Assessment & Plan Anesthesia* Anesthesia Assessment Anesthesia Assessment: Discussed sedation and/or anesthesia options, risks, benefits, and alternatives with patient/parents/legal guardian/POA. Questions invited. The patient/parents/legal guardian/POA seems to understand and agrees to proceed with anesthesia plan. Reviewed the physical assessment, medical history, allergy history and patient home medications list prior to surgery/procedure/anesthetic and documented any changes. Performed airway and anesthesia risk assessments. Anesthesia Type Anesthesia Type: General Anesthesia Focused Assessment* Airway Assessment Mouth opens: >3 cm Mallampati Score: II Focused Labs Anesthesia Preop lab: CBC WBC 6.4 K/mm3 (4.4-11.0) 10/29/21 15:46 10/29/21 RBC 4.34 M/mm3 (4.2-5.4) 10/29/21 15:46 10/29/21 Hgb 14.3 g/dL (12.0-15.0) 10/29/21 15:46 10/29/21 Hct 41.5 % (37-47) 10/29/21 15:46 10/29/21 Plt Count 302 K/mm3 (150-450) 10/29/21 15:46 10/29/21 CHEMISTRY Potassium 3.6 mmol/L (3.5-5.1) 10/29/21 15:46 10/29/21 Sodium 137 mmol/L (136-145) 10/29/21 15:46 10/29/21 BUN 13 mg/dL (7-18) 10/29/21 15:46 10/29/21 Creatinine 0.99 mg/dL (0.55-1.02) 10/29/21 15:46 10/29/21 Glucose 102 mg/dL (74-106) 10/29/21 15:46 10/29/21 COAG Pre-Assessment Diagnosis/Proposed Procedure Planned Operative Procedure(s): Right ureteroscopy, right ureteral stent placement. Laser. 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 When Was Last Pacemaker Check QUESTION #4 FULL TEXT: You/Your Family Experience fever (hyperthermia) with Anesthesia Last Oral Intake Last Oral intake: Last Oral Intake NPO since Meds taken in AM with sips of water? Meds patient instructed to take am of surgery PONV PONV - software solutions architect: PONV - software solutions architect Female Yes 12/03/24 14:59 HX of Motion Sickness No 12/03/24 14:59 HX of N/V After Surgery No 12/03/24 14:59 Non-Smoker Yes 12/03/24 14:59 Duration of Surgery greater Yes 12/03/24 14:59 than 60 minutes Number of Risk Factors 3 12/03/24 14:59 PONV Score Moderate Risk 12/03/24 14:59 Height & Weight Height & Weight: Anesthesia: Height & Weight Height 4 ft 11 in 11/03/21 11:13 Respiratory Assessment Respiratory Assessment - software solutions architect: Respiratory Tract Infection Hx - software solutions architect Hx Respiratory Tract Infection No 12/03/24 14:59 STOP Sleep Apnea STOP Sleep Apnea - software solutions architect: STOP Sleep Apnea - software solutions architect Hx Hypertension Yes: CONTROLLED WITH MED 12/03/24 14:59 Hx Sleep Apnea No 12/03/24 14:59 CPAP No 11/02/21 09:26 BIPAP No 06/28/20 10:45 Do you snore loudly (louder No 12/03/24 14:59 than talking or can be heard Do you often feel tired/ No 12/03/24 14:59 fatigued/ sleepy during daytime? Has anyone observed you stop No 12/03/24 14:59 breathing during sleep? STOP Results Negative 12/03/24 14:59 QUESTION #5 FULL TEXT : Do you snore loudly (louder than talking or can be heard through closed doors)? 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 Specify any problems Hx of Preganancy in last 3 No 12/03/24 14:59 Months Nurse Filling Out Transfusion DSCHRIBER 12/03/24 14:59 & Questions: Date: 12/03/24 12/03/24 14:59 Time: 15:00 12/03/24 14:59 Patient unable to answer at this time (ie. confused, unrespo /Reproduction History /Reproductive History - software solutions architect: /Reproductive Hx- software solutions architect Hx Now No 12/03/24 14:59 Gestational Age (in weeks): EDC: Hx Hx Para Hx Section SAB No 12/03/24 14:59 Active Medications Active Medications: Current Medications Generic Name Dose Route Start Last Admin Trade Name Freq PRN Reason Stop Dose Admin Cefazolin Sodium 2 gm/ Sodium 110 mls @ 150 mls/hr 12/04/24 15:50 Chloride IV 12/04/24 16:33 INTRAOP ONE Lactated Ringer's 1,000 mls @ 15 mls/hr 12/04/24 14:00 IV .Q48H NELIDA PFSH Medical History Post-menopausal Former smoker Leg cramps Wears glasses Wears dentures Depression Anxiety Alcohol use Arthritis Hoarseness of voice Back pain Injury of back Migraine headache History of stress test History of heart attack Heart murmur Pain HTN (hypertension) Home Medications ?Medication ?Instructions ?Recorded ?Last Taken ?Type amlodipine 10 mg-benazepril 20 mg 1 capsule PO DAILY hypertension 06/24/15 11/03/21 08:00 History capsule (Lotrel) lorazepam 1 mg tablet 1 mg PO DAILY anxiety 06/24/15 06/27/20 History paroxetine HCl 30 mg tablet 30 mg PO DAILY 12/03/24 Unknown History Allergy/AdvReac Type Severity Reaction Status Date / Time No Known Allergies Allergy Verified 12/03/24 14:56 Family History Mother Hypertension CVA (cerebral vascular accident) Brother Pancreatic cancer Surgical History History of ureteroscopy History of cardiac catheterization Hx of left cataract extraction Hx of right cataract extraction Hx of colonoscopy Hx of bladder repair surgery Hx of decompressive lumbar laminectomy History of cystoscopy Social History Smoking Status: Current some day smoker tobacco type: cigarettes Review of Systems (Anesthesia) ROS Narrative System reviewed and no additional complaints, except as documented.
[2024-12-04] MEDS: Lactated Ringers 1,000 ML 15 ML IV (14:24)
[2024-12-04] MEDS: Cefazolin 2 GM in 0.9% Normal Saline (100mL Bag) 100 ML IV (15:44)
--- NOTE | 2024-12-04 16:25 | PCM.OPRPT ---
Operative Report (Standard) Operative Information Date of Procedure: 12/04/24 Pre-Operative Diagnosis: Right kidney stone Post-Operative Diagnosis: Same Surgery/Procedure Performed: Cystoscopy right ureteroscopy laser lithotripsy of stone, no stent vocational ed instructor: No Type of Anesthesia: General RN Documented Start/Stop Times: Operation Date: 12/04/24 15:50 Case Time Into Pre-Op 12/04/24 13:50 Anesthesia Start 12/04/24 15:42 Into Room 12/04/24 15:42 Out of Pre-Op 12/04/24 15:42 Procedure Start 12/04/24 15:57 Procedure Start Time: 15:57 Procedure Stop Time: 16:25 Select all DRAINS/GRAFTS/IMPLANTS that apply: None Estimated Blood Loss: None Specimen collected: No Description of surgery: This is a 84-year-old female on CAT scan she has a large but nonobstructing stone on the right kidney she has been complaining about pain in the right side so organ to proceed with ureteroscopy laser lithotripsy of the stone and possible stent on the right side. Patient was taken back to the operating room after smooth induction of anesthesia she was placed in dorsolithotomy position. The urethra vaginal area prepped and draped in usual fashion went in the bladder with a 21 [place] rigid cystourethroscope I then identified the right ureteral orifice using a Glidewire was it was able to cannulate the right ureteral orifice and then went in with a flexible ureteroscope was able to get up the ureter went all the way up to the kidney and then inspected the upper pole midpole and lower pole and then found a large 9 mm fragment in the lower pole of the kidney I then used 100 ?m laser fiber and lasered the stone completely into small little pieces once the stone was lasered completely into small pieces that should all pass on their own I went right way down the ureter no major fragments were seen along the ureter no perforation or damage to the ureter. I then removed the ureteroscope no stent was placed bladder was emptied and patient will follow-up in a few weeks for checkup and we will make a decision about whether to treat the left side or not depending how she feels hopefully treating this right large kidney stone will improve her pain on the right side but there was no guarantees that there would send the stone was nonobstructive. Patient bladder was drained we will see in a few weeks for checkup. Surgical Findings: Stone in right kidney lasered completely into smaller pieces Complications Complications: No Admit VTE Documentation VTE Present on Admission: No VTE Mechan Device Prophylaxis: SCD's VTE Pharm Prophylaxis ordered?: No
--- NOTE | 2024-12-04 16:46 | PCM.POST.ANE ---
Anesthesia: Postop Eval I Current Vital Signs Temperature: 97.4 F Pulse Rate: 87 Blood Pressure: 166/103 Respiratory Rate: 16 Pulse Ox: 100 Oxygen Delivery Method: Venturi Mask Oxygen Flow Rate (L/min): 6 Assessment Airway patent: Yes Spontaneous unlabored respirations: Yes Mental status: Calm nausea: No Vomiting: No Anesthesia Complication: No Fluid Hydration Crystalloid volume administer (ml): 700 Total IV fluid infused: 700 Progress Note Anesthesia document: Postop Eval 1 completed: Yes
[2024-12-04] MEDS: Ketorolac 15 MG/ML Vial IV (17:06)
--- NOTE | 2024-12-05 15:40 | POSTOPAN2_ITS ---
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.LMIL Spontaneous unlabored Yes 12/04/24 16:47 ARCH CUSHION SKIVING MACHINE OPERATOR.LMIL respirations Mental status Calm 12/04/24 16:47 ARCH CUSHION SKIVING MACHINE OPERATOR.LMIL nausea No 12/04/24 16:47 ARCH CUSHION SKIVING MACHINE OPERATOR.LMIL Vomiting No 12/04/24 16:47 ARCH CUSHION SKIVING MACHINE OPERATOR.LMIL Anesthesia Postop Eval I: Fluid Summary Crystalloid volume administer 700 12/04/24 16:47 ARCH CUSHION SKIVING MACHINE OPERATOR.LMIL (ml) Colloids volume administered ( ml) Blood Product volume administered (ml) Total IV fluid infused 700 12/04/24 16:47 ARCH CUSHION SKIVING MACHINE OPERATOR.LMIL Anesthesia Postop Eval I: Summary Notes Anesthesia Complication No 12/04/24 16:47 ARCH CUSHION SKIVING MACHINE OPERATOR.LMIL Anesthesia Complication Comment: Post-operative progress note Anesthesia: Postop Eval II Evaluation Mental status: Awake and Calm Pain Level: 1 nausea: No Vomiting: No Complications Anesthesia Complication: No
--- NOTE | 2024-12-05 15:40 | PCM.POSTANE2 ---
Anesthesia Postop Eval I Sum Postop Eval Completion status Anesthesia document: Postop Eval 1 completed: Yes Anesthesia Postop Eval I Summary Anesthesia Postop Eval I Summary: Anesthesia Postop Eval I: Assessment Summary Airway patent Yes 12/04/24 16:47 TELEPHONE ORDER CLERK ROOM SERVICE.LMIL Spontaneous unlabored Yes 12/04/24 16:47 TELEPHONE ORDER CLERK ROOM SERVICE.LMIL respirations Mental status Calm 12/04/24 16:47 TELEPHONE ORDER CLERK ROOM SERVICE.LMIL nausea No 12/04/24 16:47 TELEPHONE ORDER CLERK ROOM SERVICE.LMIL Vomiting No 12/04/24 16:47 TELEPHONE ORDER CLERK ROOM SERVICE.LMIL Anesthesia Postop Eval I: Fluid Summary Crystalloid volume administer 700 12/04/24 16:47 TELEPHONE ORDER CLERK ROOM SERVICE.LMIL (ml) Colloids volume administered ( ml) Blood Product volume administered (ml) Total IV fluid infused 700 12/04/24 16:47 TELEPHONE ORDER CLERK ROOM SERVICE.LMIL Anesthesia Postop Eval I: Summary Notes Anesthesia Complication No 12/04/24 16:47 TELEPHONE ORDER CLERK ROOM SERVICE.LMIL Anesthesia Complication Comment: Post-operative progress note Anesthesia: Postop Eval II Evaluation Mental status: Awake and Calm Pain Level: 1 nausea: No Vomiting: No Complications Anesthesia Complication: No
== END 2024-12-04 18:07 | disposition home or self-care (01) ==
LOC: SDC 13:40 → AC 13:42
PROVIDERS: PCP Family Medicine; Referring Provider Urology; Visit Provider Urology
PROC: 0TJ98ZZ Inspection of Ureter, Via Natural or Artificial Opening Endoscopic (ICD-10-PCS; CPT 52352; principal; 2024-12-04 15:40)
DX: N20.0 Calculus of kidney (principal); I10 Essential (primary) hypertension; F17.210 Nicotine dependence, cigarettes, uncomplicated; Z79.899 Other long term (current) drug therapy
CPT/HCPCS: 52353; 00910; 74018; C1769; J2405

== ENCOUNTER 2025-01-16 15:12 | Emergency (ER) | payer MEDICARE, SELFPAY ==
[2025-01-16 15:12] VITALS: BP 123/73; PULSE 106; RESP 15; TEMP 36.3; O2SAT 98; BMI 17.9
--- NOTE | 2025-01-16 15:50 | CT_ITS ---
PROCEDURE: ABDOMEN/PELVIS W IV CONT ONLY 01/16/2025 REASON FOR EXAM: CONCERN FOR RIGHT LOWER QUADRANT HERNIA TECHNIQUE: Abdomen and pelvis CT with intravenous contrast. Coronal and Sagittal reconstruction series were provided. PATIENT PREPARATION: Per protocol ORAL CONTRAST TYPE: None. CONTRAST: Isovue 370 VOLUME: 100 mL One or more dose reduction techniques were used (e.g., Automated exposure control, adjustment of the mA and/or kV according to patient size, use of iterative reconstruction technique. RADIATION DOSE SUMMARY: CTDlvol: 20 mGy DLP: 300 mGycm COMPARISON: CT abdomen pelvis 04/2022. FINDINGS: Lung bases: Bibasilar atelectasis/scarring. Liver: The liver is normal in size without focal suspicious mass. The major portal veins are patent. Mild biliary ductal dilation, compatible with patient age. Gallbladder: Unremarkable. Spleen: Normal in size. Pancreas: Unremarkable. Adrenals: No obvious adrenal mass. Kidneys: Bilateral renal cysts and additional hypodensities. Interval progression of the now mild bilateral hydronephrosis. Interval resolution of the prior right nephrolithiasis. Stable tiny left upper pole renal calculi. Bladder: Mildly distended and unremarkable. Reproductive Organs: Stable right adnexal cyst, unchanged since at least 2021. Prior hysterectomy. Bowel: Stable large hiatal hernia. The bowel loops are nondilated. No ascites or pneumoperitoneum. No inflammatory mass in the expected region of the appendix. Moderate-sized right inguinal hernia containing nondilated small bowel loops. Lymph nodes: No obvious lymphadenopathy. Vasculature: Severe mixed plaque of the aortoiliac vessels. Ectasia/tortuosity of the abdominal aorta. Bones: Stable moderate height loss of the L1 vertebral body. Severe levoscoliosis of the lumbar spine. Thoracolumbar spondylosis. Diffuse osseous demineralization. CT/Abdomen/Pelvis W IV Cont ONLY IMPRESSION: 1. No acute abdominopelvic finding. 2. Moderate-sized right inguinal hernia containing nondilated small bowel loops . 3. Resolution of the prior right renal calculus and stable left renal calculi. Mild bilateral hydronephrosis. Reading Location: [id number]
[2025-01-16] MEDS: 0.9% Normal Saline (1000mL) 1,000 ML 999 ML IV (16:01)
[2025-01-16 16:15] LABS: Absolute Lymphocyte Count 1.06 X10^3/uL (0.83-4.51); Absolute Neutrophil Count 4.9 X10^3/uL (2.0-7.7); Basophil# 0.03 X10^3/uL; Basophil% 0.5 % (0-1); Eosinophil# 0.04 X10^3/uL; Eosinophils% 0.6 % (0-5); Hematocrit 28.3 % (37-47); Lymphocyte # 1.06 X10^3/ul (0.83-4.51); Mean Corp Hgb Conc 31.8 g/dL (32-36); Mean Corpuscular Hgb 28.8 pg (27.0-32.0); Mean Corpuscular Volume 90.4 fL (81-99); Mean Platelet Vol. 10.1 fl (6.2-12.0); Monocyte# 0.63 X10^3/uL; Monocyte% 9.5 % (0-10); NRBC Flagged by Analyzer 0 % (0-5); Neutrophil # 4.86 X10^3/uL (2.7-7.7); Neutrophil % 73.1 % (47-70); Platelet Count 383 K/mm3 (150-450); RBC Distribution Width CV 13.5 % (11.6-14.6); RBC Distribution Width SD 44.4 fl (35.1-43.9); Red Blood Count 3.13 M/mm3 (4.2-5.4); White Blood Count 6.6 K/mm3 (4.4-11.0)
--- NOTE | 2025-01-16 16:35 | EX.ED.DYSGE1 ---
HPI History of Present Illness Chief Complaint: Abd Pain Narrative Narrative: Chief complaint and HPI: Chronic right lower quadrant abdominal pain. 84-year-old female with past medical history of urolithiasis presents for evaluation of chronic right lower quadrant abdominal pain. Patient states for the past year she has had a hernia in her right lower quadrant. States that it pops out every morning in which she pushes it back in. States that she has had chronic pain in this area. Spoke with her primary care physician about this today who recommended her come to the emergency department for evaluation. Right lower quadrant pain is not worse than baseline. She denies any fever, chills, shortness of breath, chest pain, diarrhea, constipation, vomiting. States that she occasionally has nausea as well as poor urinary stream. Denies any dysuria or hematuria. Review of systems: See HPI Medications: As listed on the chart Allergies: As listed on the chart PFSH: Per chart Vital signs: As listed on the chart. Reviewed. Physical exam: Gen: A&O x3, NAD Head: Normocephalic, atraumatic Eyes: No sclera icterus, conjunctiva clear ENT: Moist mucous membranes Neck: Trachea midline, No JVD CV: RRR, no murmurs, no peripheral edema Resp: Lungs CTA BL, no w/r/c GI: Abd soft, non-distended, non-tender, no r/r/g, no hernia visualized or hernia defect felt : No CVA tenderness, no inguinal hernia visualized or hernia defect felt Musc: Full ROM, no deformity Skin: Warm, dry Neuro: Alert, oriented, grossly intact, sensation intact Psych: Cooperative, appropriate mood and affect [facility] Medical History Post-menopausal Former smoker Leg cramps Wears glasses Wears dentures Depression Anxiety Alcohol use Arthritis Hoarseness of voice Back pain Injury of back Migraine headache History of stress test History of heart attack Heart murmur Pain HTN (hypertension) Home Medications ?Medication ?Instructions ?Recorded ?Last Taken ?Type amlodipine 10 mg-benazepril 20 mg 1 capsule PO DAILY hypertension 06/24/15 12/03/24 History capsule (Lotrel) lorazepam 1 mg tablet 1 mg PO DAILY anxiety 06/24/15 12/04/24 History paroxetine HCl 30 mg tablet 30 mg PO DAILY 12/03/24 Unknown History cephalexin 500 mg capsule 500 mg PO Q12 #14 CAPSULES 01/16/25 Unknown Rx Allergy/AdvReac Type Severity Reaction Status Date / Time No Known Allergies Allergy Verified 01/16/25 15:12 Family History Mother Hypertension CVA (cerebral vascular accident) Brother Pancreatic cancer Surgical History History of ureteroscopy History of cardiac catheterization Hx of left cataract extraction Hx of right cataract extraction Hx of colonoscopy Hx of bladder repair surgery Hx of decompressive lumbar laminectomy History of cystoscopy Social History Smoking Status: Current some day smoker tobacco type: cigarettes EXAM Physical Exam Const Vital Signs: 01/16/25 15:12 01/16/25 17:12 01/16/25 19:00 Temperature 97.4 F L Temperature Source Temporal Pulse Rate 106 H 73 71 Respiratory Rate 15 18 16 Blood Pressure 123/73 H 120/81 H 135/88 H Blood Pressure Mean 89 94 103 Pulse Ox 98 99 98 Oxygen Delivery Method Room Air Room Air Room Air 01/16/25 21:00 01/16/25 21:11 Temperature 98.0 F Temperature Source Pulse Rate 76 77 Respiratory Rate 18 18 Blood Pressure 123/86 H 136/80 H Blood Pressure Mean 98 98 Pulse Ox 98 99 Oxygen Delivery Method Room Air MDM MDM MDM Narrative Medical decision making narrative: 84-year-old female with past medical history of urolithiasis presents for evaluation of chronic right lower quadrant abdominal pain. Patient states for the past year she has had a hernia in her right lower quadrant which causes chronic right lower quadrant abdominal pain. Pain is not any worse than baseline. States that she has mentioned this multiple times to her PCP without any further recommendations. States that she mention it again today in which she was told to come to the emergency department. See physical exam findings. No hernia visualized. No hernia defect felt. Differential diagnosis includes but is not limited to reproducible hernia, incarcerated hernia, strangulated hernia, pancreatitis, UTI, gastritis. Abdominal pain workup ordered including CT abdomen pelvis. CBC without leukocytosis. Patient has anemia with hemoglobin of 9. Previous labs are from 2021. Patient diet denies any dark or bloody bowel movements. CMP shows renal insufficiency with a BUN of 33 and a creatinine of 1.41. Again previous labs are from 2021. Lactic acid unremarkable. No transaminitis. Lipase mildly elevated at 85. Patient not having any epigastric pain on report or physical exam. CT abdomen pelvis shows moderate-sized right inguinal hernia containing nondilated small bowel loops. Resolution of the prior right renal calculus and stable left renal calculi. Mild bilateral hydronephrosis. Patient was updated on all of her results. Her and her family member do not know her baseline labs. They will see if they can find them. I will try to Clinisync the patient. Her symptoms are likely secondary from her right inguinal hernia. Currently not incarcerated or strangulated therefore no need for emergent surgery. UA pending at this time. On Clinisync CBC from October 2024 shows hemoglobin of 13.7 with a BUN 32 and a creatinine of 1.47. Given patient has no history of anemia, will perform stool occult to assess for GI bleed. However patient is at her baseline kidney function. Stool occult negative. UA positive for UTI. On chart review, patient does not have previous urine cultures. Urine culture sent. Will give first dose of Keflex here in the emergency department. Patient will be discharged home on a prescription of Keflex. Follow-up with PCP as well as general surgery for her right inguinal hernia. Her and her family member updated all the results and confirmed understand the plan. They were made aware that she is not anemic and needs to follow-up with us outpatient with her PCP. Patient stable to discharge home. Impression: 1. Right inguinal hernia 2. UTI 3. Anemia 4. Chronic renal insufficiency Lab Data Labs: Laboratory Results - last 24 hr 01/16/25 01/16/25 16:00 18:30 WBC 6.6 RBC 3.13 L Hgb 9.0 L Hct 28.3 L MCV 90.4 MCH 28.8 MCHC 31.8 L RDW Std Deviation 44.4 H RDW Coeff of Harris 13.5 Plt Count 383 MPV 10.1 Immature Gran % (Auto) 0.300 Neut % (Auto) 73.1 H Lymph % (Auto) 16.0 L [place] % (Auto) 9.5 Eos % (Auto) 0.6 Baso % (Auto) 0.5 Absolute Neuts (auto) 4.9 Absolute Lymphs (auto) 1.06 Nucleated RBC % 0 Sodium 140 Potassium 4.1 Chloride 106 Carbon Dioxide 21.8 Anion Gap 11 BUN 33 H Creatinine 1.41 H Estim Creat Clear Calc 18.22 L Est GFR (MDRD) Non-Af 36 L BUN/Creatinine Ratio 23.1 H Glucose 108 H Lactic Acid 1.5 Calcium 9.5 Total Bilirubin 0.29 AST 17 ALT 11 Alkaline Phosphatase 76 Total Protein 7.0 Albumin 4.0 Globulin 3.0 Albumin/Globulin Ratio 1.3 Lipase 85 H Urine Color Straw Urine Clarity Sl. Cloudy Urine pH 6.0 Ur Specific [place] 1.015 Urine Protein 30 H Urine Glucose (UA) Normal Urine Ketones Negative Urine Occult Blood 50 H Urine Nitrite Negative Urine Bilirubin Negative Urine Urobilinogen Normal Ur Leukocyte Esterase 500 H Urine RBC 5-10 SEEN Urine WBC 50-100 SEEN Ur Squamous Epith Cells 0-5 SEEN Ur Transition Epith Cell 0-5 SEEN Urine Bacteria 1+ Hyaline Casts 0-5 SEEN Urine Mucus 1+ Radiography Diagnostic Testing: Clinical Impression(s) from Imaging Studies Abdomen/Pelvis CT 01/16/25 15:50 IMPRESSION: 1. No acute abdominopelvic finding. 2. Moderate-sized right inguinal hernia containing nondilated small bowel loops. 3. Resolution of the prior right renal calculus and stable left renal calculi. Mild bilateral hydronephrosis. Reading Location: [facility] Discharge Plan Triage Chief Complaint: Abd Pain ED Provider: Bishnu Liz Dx/Rx/DC Orders Clinical Impression: Inguinal hernia, right, Acute UTI Instructions: Urinary Tract Infections in Women, ED Hernia (Adult) Prescriptions: New cephalexin 500 mg capsule 500 mg PO Q12 Qty: 14 0RF No Action lorazepam 1 MG tablet 1 mg PO DAILY amlodipine-benazepril [Lotrel] 1 CAPSULE capsule 1 capsule PO DAILY paroxetine HCl 30 mg tablet 30 mg PO DAILY Primary Care Provider: Quintin Esposito Referrals: Quintin Esposito MD [Primary Care Provider] - 3-5 Days Sarah Montiel MD [Med Staff - Active Staff] - 3-5 Days Activity Restrictions/Additional Instructions: Follow-up with your primary care physician for urinary tract infection. You received your first dose of antibiotics here in the emergency department. Take all of your antibiotics. Follow-up with general surgery for your hernia. Return back to the ED if symptoms change or worsen. Print Language: [place] Irish Disposition Disposition: Home, Self Care Discharge Date/Time: 01/16/25 21:12
[2025-01-16 16:38] LABS: Lactic Acid 1.5 mmol/L (0.0-2.0)
[2025-01-16 16:39] LABS: ALB/GLOB Ratio 1.3 RATIO (0.9-2.4); AST(SGOT) 17 U/L (<=31); Alanine Aminotransfer ALT/SGPT 11 U/L (<=34); Alkaline Phosphatase 76 U/L (35-104); Anion Gap 11 (5-15); BUN 33 mg/dL (4-19); BUN/Creat Ratio 23.1 RATIO (10-20); Calcium,Total 9.5 mg/dL (7.6-11.0); Carbon Dioxide 21.8 mmol/L (21.0-32.0); Chloride 106 mmol/L (98-108); Creatinine, Serum 1.41 mg/dL (0.70-1.20); EST Glomerular Filtration Rate 36 (>60); Estimated Creatinine Clearance 18.22 ml/min (50-250); Glucose 108 mg/dL (70-99); Lipase 85 U/L (13-75); Potassium 4.1 mmol/L (3.3-5.1); Sodium Level 140 mmol/L (133-145); Total Bilirubin 0.29 mg/dL (0.00-1.30)
[2025-01-16 17:12] VITALS: BP 120/81; PULSE 73; RESP 18; O2SAT 99
[2025-01-16 19:00] VITALS: BP 135/88; PULSE 71; RESP 16; O2SAT 98
[2025-01-16 19:33] LABS: Color, Urine Straw (Yellow); Glucose, Dipstick Normal (Normal); Ketone-Dipstick Negative (Negative); Leukocyte Esterase-Dipstick 500 /ul (Negative); Nitrite-Dipstick Negative (Negative); Occult Blood-Urine 50 /ul (Negative); Protein-Dipstick 30 mg/dl (Negative); Specific Gravity, Urine 1.015 (1.002-1.030); Urine Bilirubin Dipstick Negative (Negative); Urine Clarity Sl. Cloudy (Clear); Urine Urobilinogen Normal (Normal)
[2025-01-16 20:44] LABS: Squamous Epithelial Cells - UA 0-5 SEEN /hpf (5-10); Transitional Epithelial - Ur 0-5 SEEN /hpf (0-5)
[2025-01-16 20:45] LABS: Red Blood Cells-Urine 5-10 SEEN /hpf (0-5); White Blood Cells 50-100 SEEN /hpf (0-5)
[2025-01-16 20:47] LABS: Bacteria 1+ /hpf (None Seen); Hyaline Cast 0-5 SEEN /lpf (0-5); Mucous, Urine 1+ /hpf (<or=2+)
[2025-01-16 21:00] VITALS: BP 123/86; PULSE 76; RESP 18; O2SAT 98
[2025-01-16] MEDS: Cephalexin 250 MG Capsule 500 MG PO (21:08)
[2025-01-16 21:11] VITALS: BP 136/80; PULSE 77; RESP 18; TEMP 36.7; O2SAT 99
== END 2025-01-16 21:12 | disposition home or self-care (01) ==
PROVIDERS: Emergency Provider Surgery; PCP Family Medicine; Referring Provider Surgery; Visit Provider Surgery
DX: K40.90 Unilateral inguinal hernia, without obstruction or gangrene, not specified as recurrent (principal); N13.6 Pyonephrosis; N18.9 Chronic kidney disease, unspecified; I12.9 Hypertensive chronic kidney disease with stage 1 through stage 4 chronic kidney disease, or unspecified chronic kidney disease; R10.31 Right lower quadrant pain; G89.29 Other chronic pain; D64.9 Anemia, unspecified; F32.A Depression, unspecified; F41.9 Anxiety disorder, unspecified; I25.2 Old myocardial infarction; F17.210 Nicotine dependence, cigarettes, uncomplicated; Z79.899 Other long term (current) drug therapy
CPT/HCPCS: 74177; 80053; 81001; 82274; 83605; 83690; 85025; 87086; 87088; 96360; 96361; 99284; Q9967; A4216

== ENCOUNTER 2025-07-18 12:59 | Emergency (ER) | payer MEDICARE, SELFPAY ==
[2025-07-18 13:01] VITALS: BP 159/123; PULSE 88; RESP 18; TEMP 36.8; O2SAT 99
[2025-07-18 13:16] VITALS: BMI 19.6
--- NOTE | 2025-07-18 13:55 | RAD_ITS ---
PROCEDURE: HIP, UNI W/ PELVIS 2-3 VIEWS 07/18/2025 REASON FOR EXAM: ATRAUMATIC RIGHT HIP PAIN. TECHNIQUE: Procedure Code: [facility] Modality: DX Procedure: HIP, UNI W/ PELVIS 2-3 VIEWS Laterality: Right COMPARISON: 01/16/2025 FINDINGS: Bones: No acute fracture. No destructive process. Joints: Degenerative changes of both hips. Multilevel spondylosis seen. Soft tissues: Vascular calcifications. RAD/HIP, UNI W/ Pelvis 2-3 Views IMPRESSION: No acute fracture. Multilevel degenerative disc disease. Reading Location: [id number]
--- NOTE | 2025-07-18 15:14 | ED.VIS.LOWEX ---
HPI History of Present Illness HPI Narrative: Atraumatic right hip pain for several days. Denies any fall injury or trauma. No fever or redness. No prior hip history or surgery. No fever or chills. Chief Complaint: Lower Extremity Injury Informant: patient and family (Accompanied by her son.) Occured/Mechanism Mechanism/Context: No injury and No blunt trauma Onset/Context/Timing Onset: Days Context: Gradual Onset Timing: Continuous Quality of Pain: Dull and Aching Current Severity: Moderate Maximum Severity: Moderate Associated Symptoms Associated Symptoms: Negative for Parasthesia, Weakness or Loss of Funtion Narrative Narrative: 85-year-old female with atraumatic hip pain for several days. Denies any fall injury or trauma. No fever or redness. No prior history of surgery. Prior similar symptoms: No Recent Illness/Hospitalization: No PFSH PFSH Medical History Kidney stones Preop cardiovascular exam Fatigue Memory loss Body mass index [BMI] 24.0-24.9, adult Chronic kidney disease, stage 3 unspecified Essential (primary) hypertension Hiatal hernia Depression Anxiety Arthritis Hoarseness of voice Back pain History of heart attack Heart murmur Home Medications ?Medication ?Instructions ?Recorded ?Last Taken ?Type amlodipine 10 mg-benazepril 20 mg 1 capsule PO DAILY hypertension 06/24/15 12/03/24 History capsule (Lotrel) paroxetine HCl 30 mg tablet 30 mg PO DAILY 12/03/24 Unknown History lorazepam 1 mg tablet 1 mg PO TID PRN anxiety 03/06/25 Unknown History hydrocodone-acetaminophen 5-325mg 1 tab PO Q6H PRN pain 7 days #14 07/18/25 Unknown Rx 5mg-325mg tabs Allergy/AdvReac Type Severity Reaction Status Date / Time No Known Allergies Allergy Verified 07/18/25 13:02 Family History Mother Hypertension CVA (cerebral vascular accident) Brother Pancreatic cancer Surgical History History of ureteroscopy History of cardiac catheterization Hx of left cataract extraction Hx of right cataract extraction Hx of bladder repair surgery Hx of decompressive lumbar laminectomy History of cystoscopy Social History Smoking Status: Current some day smoker tobacco type: cigarettes alcohol intake: current alcohol intake frequency: a few times a week substance use type: does not use ROS ROS ED ROS Narrative Denies recent illness. Constitutional Constitutional ED: Denies chills or fever(s) Eyes Eyes: Denies blurry vision ENT ENT ED: Denies ear pain Cardiovascular Cardiovascular: Denies chest pain Respiratory/Chest Respiratory/Chest: Denies cough Gastrointestinal Gastrointestinal: Denies abdominal pain Genitourinary Genitourinary ED: Denies dysuria or hematuria Musculoskeletal Musculoskeletal: Denies arthralgias Integumentary Denies abscess Neurologic Neurologic: Denies headache(s) Psychiatric Psychiatric: Denies anxiety Endocrine Endocrinology: Denies polydipsia Hematologic/Lymphatic Hematologic/Lymphatic: Denies easy bleeding, easy bruising or lymphadenopathy Allergic/Immunologic Allergic/Immunologic ED: Denies mouth swelling, tongue swelling or urticaria EXAM Physical Exam Narrative Exam Narrative: Well-appearing 85-year-old female companied by her son. Vital signs are stable initial blood pressure is elevated be rechecked. H EENT exam pupils round react light. Moist mucous membranes. Neck nontender. No lymphadenopathy. Back nontender no SI tenderness. Lungs clear to auscultation. Heart rate about 90. Chest wall ribs nontender. Abdomen soft nontender. No peritoneal signs. Moving all 4 extremities. She has normal flexion extension of both hips and knees. Specifically the right hip she describes discomfort but she is able to do flexion extension. There is no effusion or redness no signs of septic joint. She has a small hernia in her right inguinal area but it easily reduces. She has had that for some time she states. She has normal dorsi and plantarflexion of both feet. Neurologically she is awake alert. Answering questions following commands. Const Vital Signs: 07/18/25 13:01 Temperature 98.3 F Temperature Source Oral Pulse Rate 88 Respiratory Rate 18 Blood Pressure 159/123 H Blood Pressure Mean 135 Pulse Ox 99 Oxygen Delivery Method Room Air MDM MDM MDM Narrative Medical decision making narrative: 85-year-old female atraumatic right hip pain most likely arthritis clinically does not look infected. X-ray was obtained of the right hip shows joint space narrowing and arthritis bilaterally. No fracture or dislocation. I did go over the x-ray with patient and family. She requested pain medication for home to be written for [employer] English. To be sent to her pharmacy. Ice to the area. Limited Motrin. Outpatient follow-up with orthopedics. Repeat exam prior to discharge the hip again was not red or swollen. Does not look like a septic joint. History & Record Review Discussion w/independent historian: Patient and Family Radiography Diagnostic Testing: Pelvis x-ray and right hip shows chronic arthritic changes no fracture or dislocation interpreted by myself. 3 views. Discharge Plan Triage Chief Complaint: Lower Extremity Injury ED Provider: George Anderson Dx/Rx/DC Orders Clinical Impression: Acute hip pain, Osteoarthritis Instructions: ED Osteoarthritis Prescriptions: New hydrocodone-acetaminophen 5-325 mg tablet 1 tab PO Q6H PRN (Reason: pain) 7 Days Qty: 14 0RF No Action amlodipine-benazepril [Lotrel] 1 CAPSULE capsule 1 capsule PO DAILY lorazepam 1 mg tablet 1 mg PO TID PRN (Reason: anxiety) paroxetine HCl 30 mg tablet 30 mg PO DAILY Primary Care Provider: Quintin Esposito Referrals: Quintin Esposito MD [Primary Care Provider, Medical] Benigno Hernandez MD [Med Staff - Active Staff, Orthopedics] - As soon as possible Activity Restrictions/Additional Instructions: Ice to your hip. Motrin and/or Tylenol for pain. Most likely this is from arthritis. Call and follow-up with the orthopedic Dr. Skyler Hernandez Return if fever or redness. [place] for more severe pain. Make sure you are drinking plenty of fluids, fruits and vegetables and fiber to prevent constipation and stool softener as needed. Print Language: [place] Island[place] Disposition Disposition: Home, Self Care
[2025-07-18 15:18] VITALS: BP 147/104; PULSE 87; RESP 16; TEMP 36.7; O2SAT 97
== END 2025-07-18 15:32 | disposition home or self-care (01) ==
PROVIDERS: Emergency Provider Emergency Medicine; PCP Family Medicine; Visit Provider Emergency Medicine
DX: M25.551 Pain in right hip (principal); N18.30 Chronic kidney disease, stage 3 unspecified; I12.9 Hypertensive chronic kidney disease with stage 1 through stage 4 chronic kidney disease, or unspecified chronic kidney disease; I25.2 Old myocardial infarction; F17.210 Nicotine dependence, cigarettes, uncomplicated; M19.90 Unspecified osteoarthritis, unspecified site
CPT/HCPCS: 73502; 99282